=== PATIENT | male | born 1980 | race Caucasian/White ===

== ENCOUNTER 2020-10-06 15:43 | Outpatient (CLI) | payer MEDICARE, MEDICAID, SELFPAY ==
[2020-10-06 16:12] LABS: Epithelial Count Semen 0-4 /hpf; Sperm Immotility 49 % (50-60); Sperm Non-Progressive Motility 1 % (5-10); Sperm Progressive Motility 50 % (31-34); Viscosity Semen High Viscosity; White Blood Count Semen 0-4 /hpf
[2020-10-06 16:13] LABS: Pathology Referral Yes
[2020-10-06 16:41] LABS: Side 1 19; Side 2 18
== END 2020-10-06 15:44 | disposition home or self-care (01) ==
PROVIDERS: PCP Nurse Practitioner Family; Visit Provider Obstetrics & Gynecology
DX: N46.9 Male infertility, unspecified (principal)
CPT/HCPCS: 80500; 89320

== ENCOUNTER → 2020-11-06 09:00 | Outpatient (BNVA) | payer MEDICARE, MEDICAID, SELFPAY | PROVIDERS: PCP Nurse Practitioner Family; Visit Provider Internal Medicine | DX: L40.50 Arthropathic psoriasis, unspecified (principal); Z11.59 Encounter for screening for other viral diseases; Z11.1 Encounter for screening for respiratory tuberculosis | CPT/HCPCS: 36415; 73120; 80053; 85025; 85651; 86140; 86480; 86704; 86803; 87340; 99204 ==

== ENCOUNTER 2020-11-06 10:39 | Outpatient (CLI) | payer MEDICARE, MEDICAID, SELFPAY ==
--- NOTE | 2020-11-06 10:55 | XR_ITS ---
WS: [id number] Right hand, 2 views, 11/06/2020 Clinical Data: L40.50 - Arthropathic psoriasis, unspecified Comparison: None. Findings: No fractures or dislocations are seen. The soft tissues are unremarkable. The joint space s are normal No periarticular demineralization or calcifications are seen. XR/XR hand RT 2V [id number] Impression: Negative right hand.
--- NOTE | 2020-11-06 10:55 | XR_ITS ---
WS: [id number] Left hand, 2 views, 11/06/2020 Clinical Data: L40.50 - Arthropathic psoriasis, unspecified Comparison: None. Findings: No fractures or dislocations are seen. The soft tissues are unremarkable. The joint spaces are normal No periarticular demineralization or calcifications are seen. XR/XR hand LT 2V [id number] Impression: Negative left hand.
[2020-11-06 11:44] LABS: Basophils # 0.1 10^3/uL (0.0-0.1); Eosinophils # 0.3 10^3/uL (0.0-0.8); Hemoglobin 15.7 g/dL (11.7-16.6); Lymphocytes # 0.8 10^3/uL (0.8-4.8); Lymphocytes % 13.4 %; Mean Corpuscular HGB Conc 35.7 g/dL (30.0-36.0); Mean Corpuscular Hemoglobin 29.8 pg (28.0-34.0); Mean Corpuscular Volume 83.5 fL (80-94); Mean Platelet Volume 8.8 fL (7.4-10.4); Monocytes # 0.5 10^3/uL (0.2-0.9); Monocytes % 8.1 %; Neutrophils # 4.57 10^3/uL (1.8-7.7); Nucleated Red Blood Cells % 0 %; Platelet Count 151 10^3/cmm (130-400); Red Blood Count 5.27 10^6/uL (4.1-5.3); Red Cell Distribution Width 13.2 % (12.1-15.1); White Blood Count 6.3 10^3/uL (4.0-10.0)
[2020-11-06 11:56] LABS: Alanine Aminotransferase 28 U/L (0-41); Albumin Level 4.7 g/dL (3.5-5.2); Alkaline Phosphatase 53 IU/L (40-130); Anion Gap 16.9 (5-19); Aspartate Amino Transferase 22 U/L (0-40); Blood Urea Nitrogen 8 mg/dL (6-20); Calcium 8.6 mg/dL (8.5-10.5); Carbon Dioxide 23 mmol/L (22-29); Chloride 103 mmol/L (98-107); Globulin 2.4 g/dL (1.3-4.6); Glomerular Filtration Rate 149.2 mL/min (90-130); Glucose 93 mg/dL (65-115); Osmolality Calculated 286 mOsm/kg (285-295); Potassium 3.9 mmol/L (3.5-5.1); Sodium 139 mmol/L (136-145); Total Protein 7.1 g/dL (6.6-8.7)
[2020-11-06 12:24] LABS: Erythrocyte Sedimentation Rate 5 mm/hr (0-10)
[2020-11-06 12:40] LABS: Hepatitis B Core AB, Total Non-Reactive (Nonreactive); Hepatitis B Surface Antigen Non-Reactive (Nonreactive); Hepatitis C Virus Antibody Non-Reactive (Nonreactive)
[2020-11-10 19:57] LABS: Quantiferon Nil 0.03 IU/mL; Quantiferon TB Gold NEGATIVE (NEGATIVE)
== END 2020-11-06 10:40 | disposition home or self-care (01) ==
PROVIDERS: PCP Nurse Practitioner Family; Visit Provider Internal Medicine
DX: L40.50 Arthropathic psoriasis, unspecified (principal); Z11.59 Encounter for screening for other viral diseases; Z11.1 Encounter for screening for respiratory tuberculosis
CPT/HCPCS: 36415; 73120; 80053; 85025; 85651; 86140; 86480; 86704; 86803; 87340

== ENCOUNTER → 2021-06-02 13:29 | Outpatient (BNVA) | payer MEDICARE, MEDICAID, SELFPAY | PROVIDERS: PCP Nurse Practitioner Family; Visit Provider Internal Medicine | DX: L40.50 Arthropathic psoriasis, unspecified (principal); Z79.899 Other long term (current) drug therapy; Z79.1 Long term (current) use of non-steroidal anti-inflammatories (NSAID) | CPT/HCPCS: 85025; 99213; 99214 ==

== ENCOUNTER → 2023-09-15 10:43 | Outpatient (BNVA) | payer MEDICARE, MEDICAID, SELFPAY | PROVIDERS: PCP Nurse Practitioner Family; Referring Provider Nurse Practitioner Family; Visit Provider Surgery | DX: R10.9 Unspecified abdominal pain (principal); R11.2 Nausea with vomiting, unspecified; R19.8 Other specified symptoms and signs involving the digestive system and abdomen; K21.9 Gastro-esophageal reflux disease without esophagitis; R63.4 Abnormal weight loss; R61 Generalized hyperhidrosis; Z83.79 Family history of other diseases of the digestive system; Z80.0 Family history of malignant neoplasm of digestive organs | CPT/HCPCS: 99204 ==

== ENCOUNTER 2023-10-09 20:09 | Emergency (ER) | payer MEDICARE, MEDICAID, SELFPAY ==
--- NOTE | 2023-10-09 20:19 | ECG_ITS ---
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 Measurements Intervals [place] Rate: 67 P: 42 SD: 201 QRS: 43 QRSD: 114 T: 51 QT: 398 QTc: 420 Interpretive Statements SINUS RHYTHM MODERATE INTRAVENTRICULAR CONDUCTION DELAY [110+ ms QRS DURATION] No previous ECG available for comparison Electronically Signed On 10-10-2023 21:40:40 CDT by Lesa Flower M.D. [id number] f
[2023-10-09 20:20] VITALS: BP 168/82; PULSE 66; RESP 16; TEMP 36.8; O2SAT 99
--- NOTE | 2023-10-09 20:23 | XRR_ITS ---
PROCEDURE INFORMATION: Exam: XR Chest Exam date and time: 10/09/2023 8:37 PM Age: 43 years old Clinical indication: Dyspnea TECHNIQUE: Imaging protocol: Radiologic exam of the chest. Views: 1 view. COMPARISON: No relevant prior studies available. FINDINGS: Lungs: No focal consolidation. Pleural spaces: No evidence of pneumothorax. No evidence of pleural effusion. Heart/Mediastinum: Cardiomediastinal silhouette is within normal limits. Bones/joints: No evidence of acute osseous abnormality. XR/XR chest 1V portable [id number] IMPRESSION: 1. No acute cardiopulmonary abnormality.
[2023-10-09 20:54] LABS: Basophils # 0.1 10^3/uL (0.0-0.1); Eosinophils # 0.2 10^3/uL (0.0-0.8); Eosinophils % 3.6 %; Hematocrit 44.7 % (37-53); Lymphocytes # 1.3 10^3/uL (0.8-4.8); Lymphocytes % 18.5 %; Mean Corpuscular HGB Conc 35.8 g/dL (30-55); Mean Corpuscular Hemoglobin 29.9 pg (27-33); Mean Corpuscular Volume 83.6 fl (82-101); Mean Platelet Volume 8.9 fL (7.4-10.4); Monocytes # 0.5 10^3/uL (0.2-0.9); Monocytes % 7.2 %; Neutrophils # 4.69 10^3/uL (1.8-7.7); Neutrophils % 69.4 %; Nucleated Red Blood Cells % 0 %; Platelet Count 164 10^3/cmm (157-399); Red Blood Count 5.35 10^6/uL (3.85-5.65); Red Cell Distribution Width 12.7 % (12.1-15.1); White Blood Count 6.76 10^3/uL (3.29-11.43)
[2023-10-09 21:15] LABS: Troponin(5th) Baseline 7 ng/L (0-15)
[2023-10-09 21:19] LABS: Alanine Aminotransferase 29 U/L (0-41); Albumin Level 4.5 g/dL (3.5-5.2); Alkaline Phosphatase 53 U/L (40-130); Anion Gap 15.4 (5-19); Aspartate Amino Transferase 24 U/L (0-40); Blood Urea Nitrogen 10 mg/dL (6-20); Calcium 9.4 mg/dL (8.5-10.5); Carbon Dioxide 27 mmol/L (22-29); Chloride 101 mmol/L (98-107); Creatinine Clr Calc Pharmacy 153.9336; Globulin 2.8 g/dL (1.3-4.6); Glomerular Filtration Rate 105.5 mL/min (90-130); Glucose 89 mg/dL (65-115); Lipase 50 U/L (13-60); Osmolality Calculated 289 mOsm/kg (285-295); Potassium 3.4 mmol/L (3.5-5.1); Sodium 140 mmol/L (136-145); Total Bilirubin 1.3 mg/dL (0.15-1.2); Total Protein 7.3 g/dL (6.6-8.7)
--- NOTE | 2023-10-09 21:38 | CTR_ITS ---
PROCEDURE INFORMATION: Exam: CT Head Without Contrast Exam date and time: 10/09/2023 9:50 PM Age: 43 years old Clinical indication: Dizziness; Additional info: Dizziness/paresthesias TECHNIQUE: Imaging protocol: Computed tomography of the head without contrast. Radiation optimization: All CT scans at this facility use at least one of these dose optimization techniques: automated exposure control; mA and/or kV adjustment per patient size (includes targeted exams where dose is matched to clinical indication); or iterative reconstruction. COMPARISON: No relevant prior studies available. RADIATION DOSE METRICS: Total DLP (mGy-cm): 1145.15 FINDINGS: Brain: No evidence of intra-axial or extra-axial hemorrhage. No mass effect or midline shift. Gee-white differentiation is maintained. Basilar cisterns are patent. Cerebral ventricles: No hydrocephalus. Paranasal sinuses: The visualized paranasal sinuses are well aerated. Mastoid air cells: The visualized mastoids and middle ears are clear. Bones/joints: The visualized calvarium and bony orbits are intact. Soft tissues: No gross soft tissue abnormality. CT/CT head wo con* [id number] IMPRESSION: 1. No acute intracranial abnormality.
--- NOTE | 2023-10-09 21:56 | W.ED.SOB ---
Documented by User: JOSE ALBERTO Oilva 10/09/23 23:46 HPI - SOB/Dyspnea General: Chief Complaint: Shortness of Breath/Dyspnea Stated Complaint: left side cold/numb dizziness nausea Time Seen by Provider: 10/09/23 21:08 Source: patient Mode of arrival: ambulatory Limitations: no limitations History of Present Illness: HPI Narrative: Patient is a 43-year-old male presenting to the emergency department complaining of shortness of breath onset today. Patient notes he was talking on his [employer] radio when he got suddenly short of breath, stating that it felt like he was struggling to get air. He does note a history of asthma as a pediatric, but notes he had not had issues with this since. He states that intermittently over the past couple of years he has had issues with feeling dizzy and faint, as he felt this way today as well. He denies any history of anxiety or depression. He also reports that he has an ultrasound for his gallbladder tomorrow due to some stomach issues. He states that he feels that his ribs are anatomically out of place and that this may cause some of his breathing difficulties. He also was reporting some chest pain and distal paresthesias. He is also commenting at this time that he feels confused. No other questions or concerns at this time. MD elicited complaint: shortness of breath Pertinent past history: asthma Onset (ago): hour(s) Timing: now resolved Severity: moderate Exacerbating factors: nothing Relieving factors: nothing Associated symptoms: Reports abdominal pain, chest pain and dizziness; Deny fever(s), lightheadedness, nausea, palpitations or vomiting Review of Systems General: Reports: 10 or more systems reviewed and unremarkable except in HPI and below Const: Denies: fever(s), chills or fatigue Eyes: Denies: change in vision ENMT: Denies: throat pain, ear or mastoid pain or nasal discharge Card: Reports: chest pain; Denies: palpitations, swelling of feet/ankles or lightheadedness Resp: Reports: dyspnea; Denies: productive cough or wheezing GI: Reports: abdominal pain; Denies: nausea, vomiting, diarrhea or constipation : Denies: flank pain, difficulty urinating, dysuria or urinary frequency Musc: Denies: neck pain, back pain or joint pain Skin/Breast: Denies: rash Neuro: Reports: numbness in extremities, weakness in extremities, dizziness and confusion; Denies: headache(s) PFSH ED PFSH: Medical History Psoriatic arthritis Family History Grandfather Cancer Hypertension Stroke Grandmother Cancer Hypertension Stroke Family/Other Cancer Mother Hypertension Denies family history of Diabetes Clotting disorder Dementia Hyperlipidemia Chronic kidney disease (CKD) Suicide Anesthesia complication Bleeding disorder Lung disease Social History Smoking and tobacco/nicotine status: never used tobacco/nicotine Second hand smoke exposure: No Alcohol intake: never Substance/Drug Use: never Physical Exam Const: COMMON NORMALS: no acute distress, patient oriented x3 and no limitations GENERAL APPEARANCE: cooperative, comfortable, well developed and anxious NUTRITIONAL APPEARANCE: obese ORIENTATION/CONSCIOUSNESS: Yes awake, Yes oriented to person, Yes oriented to place and Yes oriented to time HENMT: COMMON NORMALS: normocephalic, atraumatic, hearing grossly normal bilaterally and Normal external nose present HEAD & SCALP: normocephalic and atraumatic FACE & SINUS: normal facial exam NOSE: Normal external nose present Eye: COMMON NORMALS: Equal, round and reactive pupils present, EOMs intact bilaterally and conjunctivae normal CONJUNCTIVA: Yes conjunctivae normal PUPIL: Yes Equal, round and reactive pupils present Neck/C-Spine: COMMON NORMALS: full ROM, supple and no JVD Resp: COMMON NORMALS: normal respiratory effort, No retractions, No use of accessory muscles and clear to auscultation bilaterally AUSCULTATION: clear to auscultation bilaterally Cardio: COMMON NORMALS: no JVD, regular rate, regular rhythm, No clicks present (Cardio), No murmurs present (Cardio) and No rub (Cardio) RATE: regular rate RHYTHM: regular rhythm GI: COMMON NORMALS: Normal to inspection, nondistended, normoactive bowel sounds present, Soft to palpation and non-tender AUSCULTATION: Yes normoactive bowel sounds PALPATION: Yes Soft to palpation RECTAL EXAM: Yes deferred Back/Pelvis: COMMON NORMALS: thoracic and lumbar spine normal to inspection, no thoracic nor lumbar tenderness and thoraco-lumbar ROM normal Extremity: COMMON NORMALS: normal to inspection, full ROM and capillary refill normal Neuro: COMMON NORMALS: patient oriented x3, CN's II-XII intact bilaterally, moves all extremities, no focal motor deficits and no sensory deficits noted SENSORIUM/ORIENTATION: Yes oriented to person, Yes oriented to place and Yes oriented to time Psych: COMMON NORMALS: mental status grossly normal and Normal thought process present THOUGHT PROCESS: Normal thought process present Skin: COMMON NORMALS: no rashes or lesions noted GENERAL SKIN EXAM: no rashes or lesions noted Course Vital Signs: Vital signs: Vital Signs Temperature 98.2 F 10/09/23 20:20 Pulse Rate 66 10/10/23 00:05 Respiratory Rate 18 10/10/23 00:05 Blood Pressure 165/82 10/10/23 00:05 Pulse Oximetry 98 10/10/23 00:05 Oxygen Delivery Me thod Room Air 10/09/23 20:20 MDM - SOB/Dyspnea Medical Decision Making This patient seen and evaluated due to shortness of breath today. Patient had noted history of asthma but has not had incidences with this since his teenage years. Vitals normal on arrival his course has remained stable. Examination unremarkable as his lungs were clear to auscultation. Due to his reported chest pain during his breathing difficulties, EKG and troponin series was ran. These were both negative. Other basic lab work also unremarkable aside from a minimally decreased potassium which was replaced here in the ED. His chest x-ray is unremarkable. He was reporting some chronic dizziness, confusion, and feeling like he is going to pass out which she felt today. Because of this ordered a CT head, which was also negative. Patient has scheduled ultrasound of gallbladder tomorrow due to some right upper quadrant abdominal pain and nausea. I informed her to keep this as planned and to return with any concerning symptoms may have. I believe there is an anxiety component to his breathing, as his lightheadedness and dizziness today likely due to some hyperventilation that he was reporting. However due to his history of asthma, I will refill his albuterol inhaler to take as needed. I also informed him to follow-up with his primary care for further outpatient evaluation of asthma as well as any other symptoms he may have. All other questions and concerns addressed at this time. Strict return precautions given. Lab Data 10/09/23 20:47 10/09/23 20:47 Labs/Radiology: Radiology Impressions Chest X-Ray 10/09/23 20:23 IMPRESSION: 1. No acute cardiopulmonary abnormality. Head CT 10/09/23 21:38 IMPRESSION: 1. No acute intracranial abnormality. Laboratory Results WBC 6.76 10^3/uL (3.29-11.43) 10/09/23 20:47 RBC 5.35 10^6/uL (3.85-5.65) 10/09/23 20:47 Hgb 16.00 g/dL (11.27-16.99) 10/09/23 20:47 Hct 44.7 % (37-53) 10/09/23 20:47 MCV 83.6 fl (82-101) 10/09/23 20:47 MCH 29.9 pg (27-33) 10/09/23 20:47 MCHC 35.8 g/dL (30-55) 10/09/23 20:47 RDW 12.7 % (12.1-15.1) 10/09/23 20:47 Plt Count 164 10^3/cmm (157-399) 10/09/23 20:47 MPV 8.9 fL (7.4-10.4) 10/09/23 20:47 Neut % (Auto) 69.4 % 10/09/23 20:47 Lymph % (Auto) 18.5 % 10/09/23 20:47 [place] % (Auto) 7.2 % 10/09/23 20:47 Eos % (Auto) 3.6 % 10/09/23 20:47 Baso % (Auto) 1.0 % 10/09/23 20:47 Neut # (Auto) 4.69 10^3/uL (1.8-7.7) 10/09/23 20:47 Lymph # (Auto) 1.3 10^3/uL (0.8-4.8) 10/09/23 20:47 [place] # (Auto) 0.5 10^3/uL (0.2-0.9) 10/09/23 20:47 Eos # (Auto) 0.2 10^3/uL (0.0-0.8) 10/09/23 20:47 Baso # (Auto) 0.1 10^3/uL (0.0-0.1) 10/09/23 20:47 Nucleated RBC % (auto) 0 % 10/09/23 20:47 Nucleated RBCs # 0.0 /100WBC 10/09/23 20:47 Sodium 140 mmol/L (136-145) 10/09/23 20:47 Potassium 3.4 mmol/L (3.5-5.1) L 10/09/23 20:47 Chloride 101 mmol/L (98-107) 10/09/23 20:47 Carbon Dioxide 27 mmol/L (22-29) 10/09/23 20:47 Anion Gap 15.4 (5-19) 10/09/23 20:47 BUN 10 mg/dL (6-20) 10/09/23 20:47 Creatinine 0.8 mg/dL (0.7-1.2) 10/09/23 20:47 GFR Calculation 105.5 mL/min (90-130) 10/09/23 20:47 Glucose 89 mg/dL (65-115) 10/09/23 20:47 Calculated Osmolality 289 mOsm/kg (285-295) 10/09/23 20:47 Calcium 9.4 mg/dL (8.5-10.5) 10/09/23 20:47 Total Bilirubin 1.3 mg/dL (0.15-1.2) H 10/09/23 20:47 AST 24 U/L (0-40) 10/09/23 20:47 ALT 29 U/L (0-41) 10/09/23 20:47 Alkaline Phosphatase 53 U/L (40-130) 10/09/23 20:47 Troponin T Baseline 7 ng/L (0-15) 10/09/23 20:47 Troponin T 120 Minute 6.00 ng/L (0-15) 10/09/23 22:44 Delta Troponin T -1.00 ABS# (0-10) L 10/09/23 22:44 Total Protein 7.3 g/dL (6.6-8.7) 10/09/23 20:47 Albumin 4.5 g/dL (3.5-5.2) 10/09/23 20:47 Globulin 2.8 g/dL (1.3-4.6) 10/09/23 20:47 Lipase 50 U/L (13-60) 10/09/23 20:47 Urine Color Light yellow (Yellow) 10/09/23 22:52 Urine Appearance Clear (CLEAR) 10/09/23 22:52 Urine pH 7 (5-7) 10/09/23 22:52 Ur Specific [place] 1.005 (1.005-1.030) 10/09/23 22:52 Urine Protein Neg (Negative) 10/09/23 22:52 Urine Glucose (UA) Norm (Normal) 10/09/23 22:52 Urine Ketones 1+ (Negative) H 10/09/23 22:52 Urine Blood Neg (Negative) 10/09/23 22:52 Urine Nitrate Negative (Negative) 10/09/23 22:52 Urine Bilirubin Neg (Negative) 10/09/23 22:52 Urine Urobilinogen Neg mg/dL (Negative) 10/09/23 22:52 Ur Leukocyte Esterase Negative (Negative) 10/09/23 22:52 All radiology interpretation(s) finalized by discharge Discharge Plan Discharge Patient Disposition: Home Clinical Impression: Asthma with exacerbation, Anxiety Condition: Stable Prescriptions: New albuterol sulfate 90 mcg/actuation HFA aerosol inhaler 1 inh inhalation Q6H PRN (Reason: shortness of breath or wheezing) Qty: 8.5 0RF No Action triamcinolone acetonide 0.5 % cream 1 applic topical DAILY pantoprazole 40 mg tablet,delayed release (DR/EC) PO BID famotidine 40 mg tablet PO BID eszopiclone 2 mg tablet PO ONCE sucralfate 1 gram tablet 1 g PO BID 30 Days Qty: 60 0RF meloxicam 15 mg tablet 15 mg PO DAILY Qty: 30 0RF Discharge Orders: Discharge ED (Routine); Ordered 10/09/23 Ordered By: Narendra Diego Referrals: Viridiana Romero APRN [Primary Care Provider] - Discharge Diet: Usual diet Discharge Activity: Resume usual activity Patient Instructions: Asthma (ED) Activity Restrictions/Additional Instructions: Albuterol inhaler as needed. Continue plan for ultrasound tomorrow. Follow-up with primary care as discussed. Return with any new or concerning symptoms you may have. Coding Level of Care Code ED Statistical Machine Mechanic for Chg Fwd Documented by User: Rocco Rodriguez DO 10/10/23 07:36 HPI - SOB/Dyspnea General: Chief Complaint: Shortness of Breath/Dyspnea Stated Complaint: left side cold/numb dizziness nausea Time Seen by Provider: 10/09/23 21:08 [facility] ED PFSH: Medical History Psoriatic arthritis Family History Grandfather Cancer Hypertension Stroke Grandmother Cancer Hypertension Stroke Family/Other Cancer Mother Hypertension Denies family history of Diabetes Clotting disorder Dementia Hyperlipidemia Chronic kidney disease (CKD) Suicide Anesthesia complication Bleeding disorder Lung disease Social History Smoking and tobacco/nicotine status: never used tobacco/nicotine Second hand smoke exposure: No Alcohol intake: never Substance/Drug Use: never Course Vital Signs: Vital signs: Vital Signs Temperature 98.2 F 10/09/23 20:20 Pulse Rate 66 10/10/23 00:05 Respiratory Rate 18 10/10/23 00:05 Blood Pressure 165/82 10/10/23 00:05 Pulse Oximetry 98 10/10/23 00:05 Oxygen Delivery Me thod Room Air 10/09/23 20:20 MDM - SOB/Dyspnea Medical Decision Making This patient seen and evaluated due to shortness of breath today. Patient had noted history of asthma but has not had incidences with this since his teenage years. Vitals normal on arrival his course has remained stable. Examination unremarkable as his lungs were clear to auscultation. Due to his reported chest pain during his breathing difficulties, EKG and troponin series was ran. These were both negative. Other basic lab work also unremarkable aside from a minimally decreased potassium which was replaced here in the ED. His chest x-ray is unremarkable. He was reporting some chronic dizziness, confusion, and feeling like he is going to pass out which she felt today. Because of this ordered a CT head, which was also negative. Patient has scheduled ultrasound of gallbladder tomorrow due to some right upper quadrant abdominal pain and nausea. I informed her to keep this as planned and to return with any concerning symptoms may have. I believe there is an anxiety component to his breathing, as his lightheadedness and dizziness today likely due to some hyperventilation that he was reporting. However due to his history of asthma, I will refill his albuterol inhaler to take as needed. I also informed him to follow-up with his primary care for further outpatient evaluation of asthma as well as any other symptoms he may have. All other questions and concerns addressed at this time. Strict return precautions given. Chart reviewed Lab Data 10/09/23 20:47 10/09/23 20:47 Labs/Radiology: Radiology Impressions Chest X-Ray 10/09/23 20:23 IMPRESSION: 1. No acute cardiopulmonary abnormality. Head CT 10/09/23 21:38 IMPRESSION: 1. No acute intracranial abnormality. Laboratory Results WBC 6.76 10^3/uL (3.29-11.43) 10/09/23 20:47 RBC 5.35 10^6/uL (3.85-5.65) 10/09/23 20:47 Hgb 16.00 g/dL (11.27-16.99) 10/09/23 20:47 Hct 44.7 % (37-53) 10/09/23 20:47 MCV 83.6 fl (82-101) 10/09/23 20:47 MCH 29.9 pg (27-33) 10/09/23 20:47 MCHC 35.8 g/dL (30-55) 10/09/23 20:47 RDW 12.7 % (12.1-15.1) 10/09/23 20:47 Plt Count 164 10^3/cmm (157-399) 10/09/23 20:47 MPV 8.9 fL (7.4-10.4) 10/09/23 20:47 Neut % (Auto) 69.4 % 10/09/23 20:47 Lymph % (Auto) 18.5 % 10/09/23 20:47 [place] % (Auto) 7.2 % 10/09/23 20:47 Eos % (Auto) 3.6 % 10/09/23 20:47 Baso % (Auto) 1.0 % 10/09/23 20:47 Neut # (Auto) 4.69 10^3/uL (1.8-7.7) 10/09/23 20:47 Lymph # (Auto) 1.3 10^3/uL (0.8-4.8) 10/09/23 20:47 [place] # (Auto) 0.5 10^3/uL (0.2-0.9) 10/09/23 20:47 Eos # (Auto) 0.2 10^3/uL (0.0-0.8) 10/09/23 20:47 Baso # (Auto) 0.1 10^3/uL (0.0-0.1) 10/09/23 20:47 Nucleated RBC % (auto) 0 % 10/09/23 20:47 Nucleated RBCs # 0.0 /100WBC 10/09/23 20:47 Sodium 140 mmol/L (136-145) 10/09/23 20:47 Potassium 3.4 mmol/L (3.5-5.1) L 10/09/23 20:47 Chloride 101 mmol/L (98-107) 10/09/23 20:47 Carbon Dioxide 27 mmol/L (22-29) 10/09/23 20:47 Anion Gap 15.4 (5-19) 10/09/23 20:47 BUN 10 mg/dL (6-20) 10/09/23 20:47 Creatinine 0.8 mg/dL (0.7-1.2) 10/09/23 20:47 GFR Calculation 105.5 mL/min (90-130) 10/09/23 20:47 Glucose 89 mg/dL (65-115) 10/09/23 20:47 Calculated Osmolality 289 mOsm/kg (285-295) 10/09/23 20:47 Calcium 9.4 mg/dL (8.5-10.5) 10/09/23 20:47 Total Bilirubin 1.3 mg/dL (0.15-1.2) H 10/09/23 20:47 AST 24 U/L (0-40) 10/09/23 20:47 ALT 29 U/L (0-41) 10/09/23 20:47 Alkaline Phosphatase 53 U/L (40-130) 10/09/23 20:47 Troponin T Baseline 7 ng/L (0-15) 10/09/23 20:47 Troponin T 120 Minute 6.00 ng/L (0-15) 10/09/23 22:44 Delta Troponin T -1.00 ABS# (0-10) L 10/09/23 22:44 Total Protein 7.3 g/dL (6.6-8.7) 10/09/23 20:47 Albumin 4.5 g/dL (3.5-5.2) 10/09/23 20:47 Globulin 2.8 g/dL (1.3-4.6) 10/09/23 20:47 Lipase 50 U/L (13-60) 10/09/23 20:47 Urine Color Light yellow (Yellow) 10/09/23 22:52 Urine Appearance Clear (CLEAR) 10/09/23 22:52 Urine pH 7 (5-7) 10/09/23 22:52 Ur Specific [place] 1.005 (1.005-1.030) 10/09/23 22:52 Urine Protein Neg (Negative) 10/09/23 22:52 Urine Glucose (UA) Norm (Normal) 10/09/23 22:52 Urine Ketones 1+ (Negative) H 10/09/23 22:52 Urine Blood Neg (Negative) 10/09/23 22:52 Urine Nitrate Negative (Negative) 10/09/23 22:52 Urine Bilirubin Neg (Negative) 10/09/23 22:52 Urine Urobilinogen Neg mg/dL (Negative) 10/09/23 22:52 Ur Leukocyte Esterase Negative (Negative) 10/09/23 22:52 Discharge Plan Discharge Patient Disposition: Home Clinical Impression: Asthma with exacerbation, Anxiety Condition: Stable Prescriptions: New albuterol sulfate 90 mcg/actuation HFA aerosol inhaler 1 inh inhalation Q6H PRN (Reason: shortness of breath or wheezing) Qty: 8.5 0RF No Action triamcinolone acetonide 0.5 % cream 1 applic topical DAILY pantoprazole 40 mg tablet,delayed release (DR/EC) PO BID famotidine 40 mg tablet PO BID eszopiclone 2 mg tablet PO ONCE sucralfate 1 gram tablet 1 g PO BID 30 Days Qty: 60 0RF meloxicam 15 mg tablet 15 mg PO DAILY Qty: 30 0RF Discharge Orders: Discharge ED (Routine); Ordered 10/09/23 Ordered By: Narendra Diego Referrals: Viridiana Romero APRN [Primary Care Provider] - Discharge Diet: Usual diet Discharge Activity: Resume usual activity Patient Instructions: Asthma (ED) Activity Restrictions/Additional Instructions: Albuterol inhaler as needed. Continue plan for ultrasound tomorrow. Follow-up with primary care as discussed. Return with any new or concerning symptoms you may have. Coding Level of Care Code ED Statistical Machine Mechanic for Roslyn Castañeda
--- NOTE | 2023-10-09 22:37 | ECG_ITS ---
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 Measurements Intervals [place] Rate: 61 P: 5 [place]: 187 QRS: 26 QRSD: 112 T: 42 QT: 404 QTc: 407 Interpretive Statements SINUS RHYTHM MODERATE INTRAVENTRICULAR CONDUCTION DELAY [110+ ms QRS DURATION] Compared to ECG 10/09/2023 20:19:28 No significant changes Electronically Signed On 10-10-2023 21:46:40 CDT by Lesa Flower M.D. [id number]
[2023-10-09] MEDS: potassium chloride ER 20 mEq Tablet 40 MEQ PO (22:57)
[2023-10-09 22:58] VITALS: BP 166/83; PULSE 66; RESP 16; O2SAT 98
[2023-10-09 23:01] LABS: Add Urine Microscopic? NO; Charge for UA Resulting for Rev
[2023-10-09 23:10] LABS: Bilirubin Urine Neg (Negative); Blood Urine Neg (Negative); Glucose Urine UA Norm (Normal); Ketones Urine 1+ (Negative); Leukocyte Esterase Urine Negative (Negative); Nitrate Urine Negative (Negative); Protein Urine Neg (Negative); Specific Gravity, Urine 1.005 (1.005-1.030); Urine Appearance Clear (CLEAR); Urine Color Light yellow (Yellow); Urobilinogen Urine Neg (Negative); pH Urine 7 (5-7)
[2023-10-10 00:05] VITALS: BP 165/82; PULSE 66; RESP 18; O2SAT 98
== END 2023-10-10 00:06 | disposition home or self-care (01) ==
PROVIDERS: Emergency Medicine; Emergency Provider Physician Assistant; PCP Nurse Practitioner Family
DX: J45.901 Unspecified asthma with (acute) exacerbation (principal); F41.9 Anxiety disorder, unspecified
CPT/HCPCS: 36415; 70450; 71045; 80053; 81003; 83690; 84484; 85025; 93005; 99285

== ENCOUNTER 2023-10-10 07:47 | Outpatient (CLI) | payer MEDICARE, MEDICAID, SELFPAY ==
--- NOTE | 2023-10-10 08:15 | US_ITS ---
WS: [id number] RIGHT UPPER QUADRANT ULTRASOUND HISTORY: abdominal pain COMPARISON: None available. Liver: 13.5 cm in length. Normal size liver and echogenicity. No bile duct dilatation or mass. Portal Vein: Normal hepatopetal flow with monophasic waveform. Gallbladder: Normally distended. At least 1 stone is identified in the gallbladder measuring 2.1 cm i n diameter. No pericholecystic fluid. CBD: 0.3 cm Pancreas: Poorly visualized. Right kidney: 11.8 cm in length. Normal size and echogenicity. No hydronephrosis or mass. Aorta and IVC: Unremarkable abdominal aorta and IVC. No ascites. IMPRESSION: 1. Cholelithiasis. No gallbladder wall thickening or pericholecystic fluid. Patient did exhibit some tenderness over the gallbladder during ultrasound evaluation. 2. Poorly visualized pancreas.
== END 2023-10-10 07:48 | disposition home or self-care (01) ==
LOC: RAD 07:47
PROVIDERS: PCP Nurse Practitioner Family; Visit Provider Surgery
DX: R10.9 Unspecified abdominal pain (principal); K80.20 Calculus of gallbladder without cholecystitis without obstruction
CPT/HCPCS: 76705

== ENCOUNTER → 2023-10-12 08:14 | Outpatient (BNVA) | payer MEDICARE, MEDICAID, SELFPAY | PROVIDERS: PCP Nurse Practitioner Family; Visit Provider Surgery | DX: Z09 Encounter for follow-up examination after completed treatment for conditions other than malignant neoplasm (principal); K80.20 Calculus of gallbladder without cholecystitis without obstruction | CPT/HCPCS: 99214 ==

== ENCOUNTER 2023-10-19 09:06 | Day surgery (SDC) | payer MEDICARE, MEDICAID, SELFPAY ==
[2023-10-19] VITALS (10 sets, daily range): BP systolic 133–173; BP diastolic 74–90; PULSE 63–84; RESP 14–18; TEMP 36.2–36.6; O2SAT 95–100
--- NOTE | 2023-10-19 09:23 | W.PM.OPSUD ---
Surgery/Procedure H&P Update DATE OF PROCEDURE: October 19, 2023 DATE H&P PERFORMED: 10/12/23 H&P UPDATE INFORMATION: I have reviewed H&P completed within last 30 days, I have examined patient prior to procedure and No changes to prior documentation PLANNED PROCEDURE: Operation Date: 10/19/23 10:55 Proposed Procedures p Laparoscopic Cholecystectomy 67769, K80.20(Not Applicable) - Jonel Telles,
[2023-10-19] MEDS: sodium chloride 0.9% 1,000 ML 30 ML IV (09:35)
--- NOTE | 2023-10-19 10:05 | ANES.PREANE2 ---
Pre-Anesthetic Assessment Height/Weight: Height 1.75 m Weight 117.934 kg Temp Pulse Resp BP Pulse Ox O2 Del Method 97.8 F 70 18 169/82 100 Room Air 10/19/23 09:22 10/19/23 09:22 10/19/23 09:22 10/19/23 09:22 10/19/23 09:22 10/19/23 09:22 Operation Date: 10/19/23 10:55 Proposed Procedures p Laparoscopic Cholecystectomy 03072, K80.20(Not Applicable) - Jonel Telles DO Was Beta Karis taken within 24 hours: N/A Last intake: Intake Last Liquid Date 10/18/23 Last Liquid Time 23:00 Last Solid Date 10/18/23 Last Solid Time 19:00 Social No alcohol and No tobacco Exam alert, oriented x 3, clear to auscultation bilaterally and regular rate & rhythm Airway Submandibular: within normal limits Cervical ROM: within normal limits Mallampati: Class II History/ROS No significant history except as noted Pulmonary Sleep Apnea GI Gastroesophageal Reflux Disease Symptomatic cholelithiasis Anesthetic Plan ASA status: 3 Anesthesia: General Medications/Allergies Home Medications Medication Instructions Recorded Confirmed Last Taken Type meloxicam 15 mg tablet 15 mg PO DAILY #30 tabs 09/24/21 10/19/23 Unknown Rx famotidine 40 mg tablet 40 mg PO BID 09/15/23 10/19/23 10/18/23 History pantoprazole 40 mg tablet,delayed 40 mg PO BID 09/15/23 10/19/23 10/18/23 History release albuterol sulfate 90 mcg/actuation 1 inh inhalation Q6H PRN shortness 10/09/23 10/19/23 10/18/23 Rx aerosol inhaler of breath or wheezing #8.5 grams Allergies Allergy/AdvReac Type Severity Reaction Status Date / Time No Known Allergies Allergy Verified 10/12/23 08:16 Current Medications Generic Name Dose Route Start Last Admin Trade Name Freq PRN Reason Stop Dose Admin Sodium Chloride 1,000 mls @ 30 mls/hr 10/19/23 07:45 10/19/23 09:35 Sodium Chloride 0.9% IV 10/20/23 07:44 30 mls/hr .Q24H CRISTA Administration PFSH Anesthesia Medical History Psoriatic arthritis Family History Grandfather Cancer Hypertension Stroke Grandmother Cancer Hypertension Stroke Family/Other Cancer Mother Hypertension Denies family history of Diabetes Clotting disorder Dementia Hyperlipidemia Chronic kidney disease (CKD) Suicide Anesthesia complication Bleeding disorder Lung disease Social History Smoking and tobacco/nicotine status: never used tobacco/nicotine Second hand smoke exposure: No Alcohol intake: never Substance/Drug Use: never Data Anesthesia Cardiac Studies: No Data to Display
[2023-10-19] MEDS: ceFAZolin 2,000 MG in sodium chloride 0.9% (plus) 50 ML 100 MG IV (11:27)
[2023-10-19] MEDS: lidocaine-epi 2% PF 1:200,000 20 mL SDV XX (11:42)
--- NOTE | 2023-10-19 12:05 | P.OP_ITS ---
Operative Report Date of procedure: October 19, 2023 Surgeon: Jonel Telles DO Brief History: This is a very pleasant 43-year-old gentleman who presented to the office with symptomatic cholelithiasis. Laparoscopic cholecystectomy was indicated. The risk and benefits were explained and documented. Procedure: Preoperative diagnosis: Symptomatic cholelithiasis Postoperative diagnosis: Same Procedure performed: Laparoscopic cholecystectomy Surgeon: Dr. Jonel Telles DO Estimated blood loss: 5 mL Specimens: Gallbladder to pathology Complications: None apparent Description of procedure: Patient was wheeled into the operative room and placed on the OR table in a supine position. Abdomen was inspected prepped and draped in usual sterile fashion. Time-out was performed and all present were in agreement. A 15 blade scalp was used to make a stab incision in the left upper quadrant and intra- abdominal insufflation was achieved using a Veress needle. After localizing the tissue incisions were made and a 5 millimeter trocar was placed into the umbilicus as well as 2 in the right upper quadrant. A 12 millimeter trocar was placed in the epigastrium. Gallbladder was grasped and elevated. The triangle of Calot was carefully dissected using blunt dissection and electrocautery until the triangle of Calot clearly identified. The cystic duct was clipped proximally and double clipped distally. The duct was then ligated proximally. The cystic artery was doubly clipped and ligated. The gallbladder was then removed from the liver bed using electrocautery. The gallbladder was removed from the abdomen using an Endo-Catch bag through the epigastric incision. The liver bed was inspected and no bleeding was seen. The abdomen was irrigated and suctioned. All ports removed. Skin was washed and dried. Incisions were closed with 4-0 Monocryl in a subcuticular interrupted fashion. Skin glue was applied. Patient tolerated the procedure well.
--- NOTE | 2023-10-19 14:56 | ANE.PACU2 ---
Inpatient post-anesthesia follow up: Vital signs: Temperature 97.6 F Pulse Rate 70 Respiratory Rate 16 Blood Pressure 156/84 Pulse Oximetry 100 Oxygen Delivery Me thod Room Air Oxygen Flow Rate 6 Fraction of Inspir ed Oxygen Hydration adequate: Yes Nausea and vomiting: No Pain level: 6 Mental status: Baseline
== END 2023-10-19 13:30 | disposition home or self-care (01) ==
PROVIDERS: PCP Nurse Practitioner Family; Visit Provider Surgery
PROC: 0FT44ZZ Resection of Gallbladder, Percutaneous Endoscopic Approach (ICD-10-PCS; CPT 47562; principal; 2023-10-19 10:55)
DX: K80.10 Calculus of gallbladder with chronic cholecystitis without obstruction (principal); G47.30 Sleep apnea, unspecified; K21.9 Gastro-esophageal reflux disease without esophagitis; L40.50 Arthropathic psoriasis, unspecified
CPT/HCPCS: 47562; 88304; J0690; J1100; J1885; J2250; J2405; J2704; J2710; J3010; J3490; J7030

== ENCOUNTER 2023-10-25 11:00 | Day surgery (SDC) | payer MEDICARE, MEDICAID, SELFPAY ==
[2023-10-25 11:29] VITALS: BP 138/83; PULSE 69; RESP 18; TEMP 36.6; O2SAT 98; BMI 39.1
[2023-10-25] MEDS: sodium chloride 0.9% 1,000 ML 30 ML IV (11:52)
--- NOTE | 2023-10-25 12:06 | ANES.PREANE2 ---
Pre-Anesthetic Assessment Height/Weight: Height 1.75 m Weight 120.202 kg Temp Pulse Resp BP Pulse Ox O2 Del Method 97.8 F 69 18 138/83 98 Room Air 10/25/23 11:10/25/23 11:10/25/23 11:29 10/25/23 11:29 10/25/23 11:10/25/23 11:29 Preop Diagnosis: GERD, screening Operation Date: 10/25/23 12:00 Proposed Procedures p EGD(Not Applicable) - Jonel Telles DO s Colonoscopy(Not Applicable) - Jonel Telles DO Familial anesthetic complications: none Was Beta Karis taken within 24 hours: N/A Was Clonidine taken within 24 hours: N/A Last intake: Intake Last Liquid Date 10/24/23 Last Liquid Time 23:00 Last Solid Date 10/23/23 Last Solid Time 20:00 Last Intake: 23:00 Social No alcohol and No tobacco Exam alert, oriented x 3, clear to auscultation bilaterally and regular rate & rhythm Airway Submandibular: within normal limits Cervical ROM: within normal limits Mallampati: Class II Dentition: full Pulmonary Asthma and Sleep Apnea (CPAP) Last inhaler used after lap pooja last week CV/HEM None reported None reported Hepatic None reported GI Gastroesophageal Reflux Disease (controlled) Metabolic Morbid Obesity Musc/skel Lower Back Pain and Osteoarthritis/DJD Neuropsych None reported Anesthetic Plan ASA status: 3 Anesthesia: MAC Risk of > 500 ml blood loss (7ml/kg in children): No Medications/Allergies Home Medications Medication Instructions Recorded Confirmed Last Taken Type famotidine 40 mg tablet 40 mg PO BID 09/15/23 10/25/23 10/24/23 History pantoprazole 40 mg tablet,delayed 40 mg PO BID 09/15/23 10/25/23 10/24/23 History release albuterol sulfate 90 mcg/actuation 1 inh inhalation Q6H PRN shortness 10/09/23 10/25/23 10/22/23 Rx aerosol inhaler of breath or wheezing #8.5 grams docusate sodium 100 mg capsule 100 mg PO BID #14 caps 10/19/23 10/25/23 10/24/23 Rx (Colace) hydrocodone 7.5 mg-acetaminophen 1 tab PO Q6H PRN pain #20 tabs 10/19/23 10/25/23 Unknown Rx 325 mg tablet Allergies Allergy/AdvReac Type Severity Reaction Status Date / Time No Known Allergies Allergy Verified 10/25/23 11:28 Current Medications Generic Name Dose Route Start Last Admin Trade Name Sussy PRN Reason Stop Dose Admin Sodium Chloride 1,000 mls @ 30 mls/hr 10/25/23 11:15 10/25/23 11:52 Sodium Chloride 0.9% IV 10/26/23 11:14 30 mls/hr .Q24H CRISTA Administration PFSH Anesthesia Medical History Psoriatic arthritis Family History Grandfather Cancer Hypertension Stroke Grandmother Cancer Hypertension Stroke Family/Other Cancer Mother Hypertension Denies family history of Diabetes Clotting disorder Dementia Hyperlipidemia Chronic kidney disease (CKD) Suicide Anesthesia complication Bleeding disorder Lung disease Social History Smoking and tobacco/nicotine status: never used tobacco/nicotine Second hand smoke exposure: No Alcohol intake: never Substance/Drug Use: never Data Anesthesia Cardiac Studies: No Data to Display
--- NOTE | 2023-10-25 12:16 | PM.HP ---
Providers/Chief Complaint Primary Care Provider: Viridiana Romero APRN Chief Complaint: K21.9, R10.9, R11.2, R19.8, R61, R63.4, Z80.0, Z83 History of Present Illness George Waite is a 43 year old male Review of Systems General: Reports: 10 or more systems reviewed and unremarkable except in HPI and below Medications/Allergies Home Medications Medication Instructions Recorded Confirmed Last Taken Type famotidine 40 mg tablet 40 mg PO BID 09/15/23 10/25/23 10/24/23 History pantoprazole 40 mg tablet,delayed 40 mg PO BID 09/15/23 10/25/23 10/24/23 History release albuterol sulfate 90 mcg/actuation 1 inh inhalation Q6H PRN shortness 10/09/23 10/25/23 10/22/23 Rx aerosol inhaler of breath or wheezing #8.5 grams docusate sodium 100 mg capsule 100 mg PO BID #14 caps 10/19/23 10/25/23 10/24/23 Rx (Colace) hydrocodone 7.5 mg-acetaminophen 1 tab PO Q6H PRN pain #20 tabs 10/19/23 10/25/23 Unknown Rx 325 mg tablet Allergies Allergy/AdvReac Type Severity Reaction Status Date / Time No Known Allergies Allergy Verified 10/25/23 11:28 PFSH Acute PFSH: Medical History Psoriatic arthritis Family History Grandfather Cancer Hypertension Stroke Grandmother Cancer Hypertension Stroke Family/Other Cancer Mother Hypertension Denies family history of Diabetes Clotting disorder Dementia Hyperlipidemia Chronic kidney disease (CKD) Suicide Anesthesia complication Bleeding disorder Lung disease Social History Smoking and tobacco/nicotine status: never used tobacco/nicotine Second hand smoke exposure: No Alcohol intake: never Substance/Drug Use: never Vitals/I&O/Wt Last Vital Signs Temp 97.8 F 10/25/23 11:29 Pulse 69 10/25/23 11:29 Resp 18 10/25/23 11:29 BP 138/83 10/25/23 11:29 Pulse Ox 98 10/25/23 11:29 O2 Del Method Room Air 10/25/23 11:29 Weight last 48 hrs Weight 265 lb A&P Assessment and plan (1) Abdominal pain: (2) Nausea and vomiting: (3) Alternating constipation and diarrhea: (4) GERD (gastroesophageal reflux disease): (5) Family history of inflammatory bowel disease: (6) Family history of colon cancer: Plan EGD and colonoscopy Attestations Medical Necessity Statement*: Home Coding Level of Care Code Acute Code for Chg Fwd Diagnoses Abdominal pain R10.9 Nausea and vomiting R11.2 Alternating constipation and diarrhea R19.8 GERD (gastroesophageal reflux disease) K21.9 Family history of inflammatory bowel disease Z83.79 Family history of colon cancer Z80.0
[2023-10-25 12:50] VITALS: BP 143/90; PULSE 65; RESP 16; TEMP 36.3; O2SAT 100
[2023-10-25 13:29] VITALS: BP 139/66; PULSE 66; RESP 16; O2SAT 100
--- NOTE | 2023-10-25 13:30 | ANE.PACU2 ---
Inpatient post-anesthesia follow up: Airway intact: Yes Vital signs: Temperature 97.4 F Pulse Rate 66 Respiratory Rate 16 Blood Pressure 139/66 Pulse Oximetry 100 Oxygen Delivery Me thod Nasal Cannula Oxygen Flow Rate 4 Fraction of Inspir ed Oxygen Hydration adequate: Yes Nausea and vomiting: No Pain level: 1 Mental status: Baseline
[2023-10-25 14:16] LABS: C.Diff PCR (Lab) NEGATIVE (Negative)
== END 2023-10-25 13:30 | disposition home or self-care (01) ==
PROVIDERS: PCP Nurse Practitioner Family; Visit Provider Surgery
PROC: 0DJ08ZZ Inspection of Upper Intestinal Tract, Via Natural or Artificial Opening Endoscopic (ICD-10-PCS; CPT 43235; principal; 2023-10-25 12:00)
PROC: 0DJD8ZZ Inspection of Lower Intestinal Tract, Via Natural or Artificial Opening Endoscopic (ICD-10-PCS; CPT 45378; 2023-10-25 12:00)
DX: R19.8 Other specified symptoms and signs involving the digestive system and abdomen (principal); D12.5 Benign neoplasm of sigmoid colon; R11.2 Nausea with vomiting, unspecified; K21.9 Gastro-esophageal reflux disease without esophagitis; Z83.79 Family history of other diseases of the digestive system; Z80.0 Family history of malignant neoplasm of digestive organs; L40.50 Arthropathic psoriasis, unspecified; K29.50 Unspecified chronic gastritis without bleeding; G47.30 Sleep apnea, unspecified; E66.01 Morbid (severe) obesity due to excess calories; Z68.39 Body mass index [BMI] 39.0-39.9, adult
CPT/HCPCS: 43239; 45380; 45385; 82274; 83630; 87045; 87177; 87209; 87427; 87449; 87493; 88305; J2704; J7030

== ENCOUNTER → 2023-10-30 11:07 | Outpatient (BNVA) | payer MEDICARE, MEDICAID, SELFPAY | PROVIDERS: PCP Nurse Practitioner Family; Visit Provider Surgery | DX: Z90.49 Acquired absence of other specified parts of digestive tract (principal); Z98.890 Other specified postprocedural states | CPT/HCPCS: 99024 ==

== ENCOUNTER → 2023-11-06 11:07 | Outpatient (BNVA) | payer MEDICARE, MEDICAID, SELFPAY | PROVIDERS: PCP Nurse Practitioner Family; Visit Provider Surgery | DX: K29.70 Gastritis, unspecified, without bleeding (principal) | CPT/HCPCS: 99214 ==